=== PATIENT | male | born 1990 | race Caucasian/White ===

== ENCOUNTER → 2016-09-30 | Outpatient (CLI) | payer OTHER | LOC: FIMAGING 13:20 | PROVIDERS: ATTEND Psychiatry & Neurology Neurology | DX: R40.4 Transient alteration of awareness (principal) ==

== ENCOUNTER → 2016-10-05 | Outpatient (CLI) | payer OTHER ==
--- NOTE | 2016-10-05 15:03 | CPEEG ---
[f rep st] ELECTROENCEPHALOGRAM FOUR HOUR VIDEO EEG. DATES OF STUDY: 10/05/2016 DATE OF INTERPRETATION: 10/05/2016. INTERPRETATION: This 4-hour video EEG recording is essentially normal. There were no potentially e pileptogenic abnormalities present during the awake or sleep recordings. During the video EEG monit oring session, the patient did not have any clinical events. REPORT: This 4-hour video EEG contains 10 Hz alpha to the posterior head regions. In addition, the patient had a fast alpha variant. Intermittently, the patient had superimposed 20 Hz posterior dom inant rhythm present. There was no abnormal activation at rest, during photic stimulation, or hyper ventilation. The patient intermittently became drowsy and fell asleep during the study. During sarai wsiness, the patient had the nonspecific activation of rhythmic temporal theta drowsiness (RTTD), ma ximal left. This is a normal drowsy variant. There was no abnormal activation during drowsiness, s leep, or during times of arousal. The patient did not have any clinical events during the video EEG monitoring session. /[id number]/MODL
== END ==
LOC: FCPNEURO 09:02
PROVIDERS: ATTEND Psychiatry & Neurology Neurology
DX: R40.4 Transient alteration of awareness (principal)